=== PATIENT | female | born 1960 | race Caucasian/White ===

== ENCOUNTER 2021-02-17 10:25 | Emergency (ER) | payer MEDICARE, OTHER ==
[~2021-02-17] VITALS: Ht 165.1 cm; Wt 44.5 kg
[2021-02-17 10:32] VITALS: BP 108/89
== END 2021-02-17 11:46 | disposition home or self-care (01) ==
LOC: ER 10:26
DX: M25.562 Pain in left knee (principal); M79.602 Pain in left arm; Z87.81 Personal history of (healed) traumatic fracture
CPT/HCPCS: 73090; 73564; 99284